=== PATIENT | male | born 1975 | race African-American/Black ===

== ENCOUNTER → 2016-11-25 | Outpatient (CLI) | payer OTHER | LOC: MW.CHUR 10:29 | PROVIDERS: ATTEND Urology | DX: E29.1 Testicular hypofunction (principal) | CPT/HCPCS: 36415; 84402; 84403 ==

== ENCOUNTER 2018-08-20 19:46 | Emergency (ER) | payer SELFPAY ==
[2018-08-20 20:40] VITALS: BP 133/84
[2018-08-20] MEDS ORDERED: Ketorolac 60 MG/2 ML SDV IM ONE (20:47)
--- NOTE | 2018-08-20 20:53 | EDM.PDOC ---
ED HPI GENERAL MEDICAL PROBLEM - General Chief Complaint: Skin Complaint Stated Complaint: POSSIBLE MUNOZ BITE Time Seen by Provider: 08/20/18 20:39 - History of Present Illness INITIAL COMMENTS - FREE TEXT/NARRATIVE: HISTORY AND PHYSICAL: History of present illness: The patient is a 42-year-old male who presents after being exposed to the cold and says this occurred while he was on the job and has pain and tingling to the tips of his fingers throughout as well as to his toes. The patient denies any systemic complaints and has no chest pain or shortness of breath and says his whole body feels cold but he is worried about frostbite on his toes and fingers. Patient has no pre-existing medical problems and was in his usual state of good health when he was out and about today and feels that the exposure happened today. Review of systems: As per history of present illness and below otherwise all systems reviewed and negative. Past medical history: As per history of present illness and as reviewed below otherwise noncontributory. Surgical history: As per history of present illness and as reviewed below otherwise noncontributory. Social history: No reported history of drug or alcohol abuse. Family history: As per history of present illness and as reviewed below otherwise noncontributory. Physical exam: General: Well-developed well-nourished man who is nontoxic and vital signs were noted by me HEENT: Atraumatic, normocephalic, negative for conjunctival pallor or scleral icterus, mucous membranes moist, throat clear, neck supple, nontender, trachea midline. Lungs: Clear to auscultation, breath sounds equal bilaterally, chest nontender. Heart: S1S2, regular rate and rhythm no overt murmurs Abdomen: Soft, nondistended, nontender. NABS Pelvis: Deferred Genitourinary: Deferred. Rectal: Deferred. Extremities: Atraumatic, full range of motion of all extremities. At bilateral feet all the toes are very sensitive to touch but no blisters are noted and there is diffuse ill-defined erythema on all of the toes. The right foot feels warm throughout but the left toes and midfoot are somewhat cold and the patient did wear socks and gym shoes into the ED not any kind of warm boots. No blisters are seen and pulses are intact bilaterally. On bilateral fingers the soft tissue distal phalanx areas of all digits have some pinkish erythema and are sensitive to touch and have some minimal swelling but no blisters are seen in Refill is normal. The remainder of the hand is nontender without erythema tenderness or defects. Neurovascular unremarkable. Neuro: Awake, alert, oriented. Cranial nerves II through XII unremarkable. Cerebellum unremarkable. Motor and sensory unremarkable throughout. Exam nonfocal. Diagnostics: [] Therapeutics: Warm blankets were placed on feet and hands, Toradol I discussed with the patient that at this point the cold exposure would need to declare itself as true frostbite and skin injury and he would need to keep the area is warm and take anti-inflammatories. I will give him Dr. Reyes for follow- up. He is aware that he needs to not pop any blisters that come up and to keep his hands and toes as warm as possible. Impression: Cold exposure to finger s and toes Definitive disposition and diagnosis as appropriate pending reevaluation and review of above. bilateral hands and feet Pain Score (Numeric/FACES): 8 - Related Data Allergies Allergy/AdvReac Type Severity Reaction Status Date / Time No Known Allergies Allergy Verified 08/20/18 20:40 Home Meds: Home Meds . [No Known Home Meds] 08/20/18 [History] Past Medical History - Past Health History Medical/Surgical History: Denies Medical/Surgical History Psychiatric History: Reports: Depression - Infectious Disease History Infectious Disease History: Reports: Chicken Pox Social & Family History - Family History Family Medical History: Noncontributory - Tobacco Use Smoking Status *Q: Current Every Day Smoker Years of Tobacco use: 2 Packs/Tins Daily: 1 - Caffeine Use Caffeine Use: Reports: Coffee - Recreational Drug Use Recreational Drug Use: No ED ROS GENERAL - Review of Systems Review Of Systems: ROS reveals no pertinent complaints other than HPI. ED EXAM, SKIN/RASH Exam: See Below (See dictation) Course - Vital Signs Last Recorded V/S: Last Vital Signs Temp 36.8 C 08/20/18 20:37 Pulse 84 08/20/18 20:37 Resp 17 08/20/18 20:37 BP 133/84 08/20/18 20:37 Pulse Ox 97 08/20/18 20:37 - Orders/Labs/Meds Orders: Active Orders 24 hr Category Date Time Status Ketorolac [Toradol] Med 08/20/18 20:47 Once 60 mg IM ONETIME ONE Departure - Departure Time of Disposition: 20:52 Disposition: Home, Self-Care 01 Condition: Good Clinical Impression: Exposure to environmental cold Qualifiers: Encounter type: initial encounter Qualified Code(s): T69.9XXA - Effect of reduced temperature, unspecified, initial encounter - Discharge Information Referrals: PCP,None [Primary Care Provider] - Additional Instructions: The following information is given to patients seen in the emergency department who are being discharged to home. This information is to outline your options for follow-up care. We provide all patients seen in our emergency department with a follow-up referral. The need for follow-up, as well as the timing and circumstances, are variable depending upon the specifics of your emergency department visit. If you don't have a primary care physician on staff, we will provide you with a referral. We always advise you to contact your personal physician following an emergency department visit to inform them of the circumstance of the visit and for follow-up with them and/or the need for any referrals to a consulting specialist. The emergency department will also refer you to a specialist when appropriate. This referral assures that you have the opportunity for followup care with a specialist. All of these measure are taken in an effort to provide you with optimal care, which includes your followup. Under all circumstances we always encourage you to contact your private physician who remains a resource for coordinating your care. When calling for followup care, please make the office aware that this follow-up is from your recent emergency room visit. If for any reason you are refused follow-up, please contact the [facility] emergency department at and ask to speak to the emergency department charge nurse. [facility] Specialty clinic-Plastic Surgery and Hand Surgery Professional [address] [id number] Please avoid exposure to cold for the next 1-2 days and afterwards please try to protect fingers and toes by wearing warm shoes and gloves. Please take medications as prescribed for the anti-inflammatory properties and for pain management. If any blisters to surface please do not pop them and try to take care to not drain them and return to ER for reevaluation. Please call and schedule a follow-up appointment with our hand surgeon as she will need to follow this long-term for pain management and any skin issues. Return to ER as needed and as discussed. Elevate the areas to avoid swelling. - My Orders Last 24 Hours: My Active Orders 08/20/18 20:47 Ketorolac [Toradol] 60 mg IM ONETIME ONE - Assessment/Plan Last 24 Hours: My Active Orders 08/20/18 20:47 Ketorolac [Toradol] 60 mg IM ONETIME ONE
== END 2018-08-20 21:25 | disposition home or self-care (01) ==
LOC: MW.ED 19:46
DX: T69.9XXA Effect of reduced temperature, unspecified, initial encounter (principal); F17.210 Nicotine dependence, cigarettes, uncomplicated
CPT/HCPCS: 96372; 99283; J1885

== ENCOUNTER 2019-04-24 22:37 | Emergency (ER) | payer SELFPAY ==
--- NOTE | 2019-04-24 22:53 | EDM.PDOC ---
ED HPI GENERAL MEDICAL PROBLEM - General Chief Complaint: General Stated Complaint: NOSE/HIP/HEAD INJURY Time Seen by Provider: 04/24/19 22:46 - History of Present Illness INITIAL COMMENTS - FREE TEXT/NARRATIVE: HISTORY AND PHYSICAL: History of present illness: Patient's 43-year-old black male with no significant past medical history presents status post syncopal episode he states he was watching a football game stood up and passed out he was on the floor he states he had his face and sustained epistaxis he also has left hip pain he denies headache neck pain chest pain palpitations or other concerns. He denies prior episodes Review of systems: As per history of present illness and below otherwise all systems reviewed and negative. Past medical history: As per history of present illness and as reviewed below otherwise noncontributory. Surgical history: As per history of present illness and as reviewed below otherwise noncontributory. Social history: No reported history of drug or alcohol abuse. Family history: As per history of present illness and as reviewed below otherwise noncontributory. Physical exam: HEENT: Atraumatic, normocephalic, pupils reactive, negative for conjunctival pallor or scleral icterus, mucous membranes moist, throat clear, neck supple, nontender, trachea midline. Lungs: Clear to auscultation, breath sounds equal bilaterally, chest nontender. Heart: S1S2, regular, negative for clicks, rubs, or JVD. Abdomen: Soft, nondistended, nontender. Negative for masses or hepatosplenomegaly. Negative for costovertebral tenderness. Pelvis: Stable nontender. Genitourinary: Deferred. Rectal: Deferred. Extremities: Atraumatic, negative for cords or calf pain. Neurovascular unremarkable. Neuro: Awake, alert, oriented. Cranial nerves II through XII unremarkable. Cerebellum unremarkable. Motor and sensory unremarkable throughout. Exam nonfocal. Diagnostics: CBC CMP troponin PT/INR CT brain maxillofacial chest x-ray EKG x-ray left hip/ pelvis UDS Therapeutics: Saline 1 L bolus Impression: #1 observation status post fall #2 syncope #3 epistaxis #4 left hip injury Definitive disposition and diagnosis as appropriate pending reevaluation and review of above. Left Hip Pain Score (Numeric/FACES): 10 - Related Data Allergies Allergy/AdvReac Type Severity Reaction Status Date / Time No Known Allergies Allergy Verified 04/24/19 22:52 Home Meds: Home Meds . [No Known Home Meds] 08/20/18 [History] Past Medical History - Past Health History Medical/Surgical History: Denies Medical/Surgical History Psychiatric History: Reports: Depression - Infectious Disease History Infectious Disease History: Reports: Chicken Pox Social & Family History - Family History Family Medical History: Noncontributory - Caffeine Use Caffeine Use: Reports: Coffee ED ROS GENERAL - Review of Systems Review Of Systems: ROS reveals no pertinent complaints other than HPI. ED EXAM, GENERAL - Physical Exam Exam: See Below (See dictation) Course - Vital Signs Text/Narrative:: Patient's emergency per her course has been unremarkable I discussed with him admission for observation in light of the syncope and unclear etiology patient declined to follow with his primary medical doctor return as needed as discussed Last Recorded V/S: Last Vital Signs Temp 36.5 C 04/24/19 22:47 Pulse 77 04/24/19 22:47 Resp BP 106/64 04/24/19 22:47 Pulse Ox 100 04/24/19 22:47 Orthostatic Blood Pressure [ 117/72 Standing] Orthostatic Blood Pressure [ 99/72 Sitting] Orthostatic Blood Pressure [ 106/64 Supine] - Orders/Labs/Meds Orders: Active Orders 24 hr Category Date Time Status Cardiac Monitoring [RC] . DIRECTED Care 04/24/19 22:49 Active EKG Documentation Completion [RC] STAT Care 04/24/19 22:49 Active Orthostatic Vital Signs [RC] ASDIRECTED Care 04/24/19 22:49 Active Sodium Chloride 0.9% [Normal Saline] 1,000 ml Med 04/24/19 23:00 Active IV .BOLUS Saline Lock Insert [OM.PC] Stat Oth 04/24/19 22:49 Ordered Medication Orders Sodium Chloride (Normal Saline) 1,000 mls @ 999 mls/hr IV .BOLUS MEGAN Last Admin: 04/24/19 23:04 Dose: 999 mls/hr Labs: Laboratory Tests 04/24/19 04/24/19 04/24/19 Range/Units 23:00 23:00 23:00 WBC 3.54 L (4.0-11.0) K/uL RBC 4.35 L (4.50-5.90) M/uL Hgb 14.0 (13.0-17.0) g/dL Hct 42.4 (38.0-50.0) % MCV 97.5 (80.0-98.0) fL MCH 32.2 H (27.0-32.0) pg MCHC 33.0 (31.0-37.0) g/dL RDW Std Deviation 49.2 (28.0-62.0) fl RDW Coeff of Lula 14 (11.0-15.0) % Plt Count 232 (150-400) K/uL MPV 10.20 (7.40-12.00) fL Neut % (Auto) 40.4 L (48.0-80.0) % Lymph % (Auto) 41.8 H (16.0-40.0) % Lewis % (Auto) 11.9 (0.0-15.0) % Eos % (Auto) 5.1 (0.0-7.0) % Baso % (Auto) 0.8 (0.0-1.5) % Neut # (Auto) 1.4 (1.4-5.7) K/uL Lymph # (Auto) 1.5 (0.6-2.4) K/uL Lewis # (Auto) 0.4 (0.0-0.8) K/uL Eos # (Auto) 0.2 (0.0-0.7) K/uL Baso # (Auto) 0.0 (0.0-0.1) K/uL Nucleated RBC % 0.0 /100WBC Nucleated RBCs # 0 K/uL INR 0.98 Sodium 144 (136-148) mmol/L Potassium 3.6 (3.5-5.1) mmol/L Chloride 106 (98-107) mmol/L Carbon Dioxide 27.3 (21.0-32.0) mmol/L BUN 11 (7.0-18.0) mg/dL Creatinine 1.3 (0.8-1.3) mg/dL Est Cr Clr Drug Dosing TNP Estimated GFR (MDRD) > 60.0 ml/min Glucose 106 (74-106) mg/dL Calcium 8.7 (8.5-10.1) mg/dL Total Bilirubin 0.1 L (0.2-1.0) mg/dL AST 18 (15-37) IU/L ALT 20 (14-63) IU/L Alkaline Phosphatase 49 (46-116) U/L Troponin I < 0.050 (0.000-0.056) ng/mL Total Protein 7.6 (6.4-8.2) g/dL Albumin 3.8 (3.4-5.0) g/dL Globulin 3.8 (2.6-4.0) g/dL Albumin/Globulin Ratio 1.0 (0.9-1.6) Urine Color Urine Appearance Urine pH (5.0-8.0) Ur Specific Carey (1.001-1.035) Urine Protein (NEGATIVE) mg/dL Urine Glucose (UA) (NEGATIVE) mg/dL Urine Ketones (NEGATIVE) mg/dL Urine Occult Blood (NEGATIVE) Urine Nitrite (NEGATIVE) Urine Bilirubin (NEGATIVE) Urine Urobilinogen (<2.0) EU/dL Ur Leukocyte Esterase (NEGATIVE) Urine Opiates Screen (NEGATIVE) Ur Oxycodone Screen (NEGATIVE) Urine Methadone Screen (NEGATIVE) Ur Barbiturates Screen (NEGATIVE) Ur Phencyclidine Scrn (NEGATIVE) Ur Amphetamine Screen (NEGATIVE) U Methamphetamines Scrn (NEGATIVE) U Benzodiazepines Scrn (NEGATIVE) U Cocaine Metab Screen (NEGATIVE) U Marijuana (THC) Screen (NEGATIVE) 04/25/19 04/25/19 Range/Units 00:02 00:02 WBC (4.0-11.0) K/uL RBC (4.50-5.90) M/uL Hgb (13.0-17.0) g/dL Hct (38.0-50.0) % MCV (80.0-98.0) fL MCH (27.0-32.0) pg MCHC (31.0-37.0) g/dL RDW Std Deviation (28.0-62.0) fl RDW Coeff of Lula (11.0-15.0) % Plt Count (150-400) K/uL MPV (7.40-12.00) fL Neut % (Auto) (48.0-80.0) % Lymph % (Auto) (16.0-40.0) % Lewis % (Auto) (0.0-15.0) % Eos % (Auto) (0.0-7.0) % Baso % (Auto) (0.0-1.5) % Neut # (Auto) (1.4-5.7) K/uL Lymph # (Auto) (0.6-2.4) K/uL Lewis # (Auto) (0.0-0.8) K/uL Eos # (Auto) (0.0-0.7) K/uL Baso # (Auto) (0.0-0.1) K/uL Nucleated RBC % /100WBC Nucleated RBCs # K/uL INR Sodium (136-148) mmol/L Potassium (3.5-5.1) mmol/L Chloride (98-107) mmol/L Carbon Dioxide (21.0-32.0) mmol/L BUN (7.0-18.0) mg/dL Creatinine (0.8-1.3) mg/dL Est Cr Clr Drug Dosing Estimated GFR (MDRD) ml/min Glucose (74-106) mg/dL Calcium (8.5-10.1) mg/dL Total Bilirubin (0.2-1.0) mg/dL AST (15-37) IU/L ALT (14-63) IU/L Alkaline Phosphatase (46-116) U/L Troponin I (0.000-0.056) ng/mL Total Protein (6.4-8.2) g/dL Albumin (3.4-5.0) g/dL Globulin (2.6-4.0) g/dL Albumin/Globulin Ratio (0.9-1.6) Urine Color YELLOW Urine Appearance CLEAR Urine pH 5.5 (5.0-8.0) Ur Specific Carey >= 1.030 (1.001-1.035) Urine Protein NEGATIVE (NEGATIVE) mg/dL Urine Glucose (UA) NEGATIVE (NEGATIVE) mg/dL Urine Ketones TRACE H (NEGATIVE) mg/dL Urine Occult Blood NEGATIVE (NEGATIVE) Urine Nitrite NEGATIVE (NEGATIVE) Urine Bilirubin NEGATIVE (NEGATIVE) Urine Urobilinogen 0.2 (<2.0) EU/dL Ur Leukocyte Esterase NEGATIVE (NEGATIVE) Urine Opiates Screen NEGATIVE (NEGATIVE) Ur Oxycodone Screen NEGATIVE (NEGATIVE) Urine Methadone Screen NEGATIVE (NEGATIVE) Ur Barbiturates Screen NEGATIVE (NEGATIVE) Ur Phencyclidine Scrn NEGATIVE (NEGATIVE) Ur Amphetamine Screen NEGATIVE (NEGATIVE) U Methamphetamines Scrn NEGATIVE (NEGATIVE) U Benzodiazepines Scrn NEGATIVE (NEGATIVE) U Cocaine Metab Screen NEGATIVE (NEGATIVE) U Marijuana (THC) Screen NEGATIVE (NEGATIVE) Meds: Medications Generic Name Dose Route Start Last Admin Trade Name Freq PRN Reason Stop Dose Admin Sodium Chloride 1,000 mls @ 999 mls/hr 04/24/19 23:00 04/24/19 23:04 Normal Saline IV 999 mls/hr .BOLUS MEGAN Administration Discontinued Medications Generic Name Dose Route Start Last Admin Trade Name Freq PRN Reason Stop Dose Admin Acetaminophen 1,000 mg 04/25/19 00:16 04/25/19 00:24 Tylenol Extra Strength PO 04/25/19 00:17 1,000 mg ONETIME ONE Administration Ketorolac Tromethamine 30 mg 04/25/19 00:16 04/25/19 00:24 Toradol IVPUSH 04/25/19 00:17 30 mg ONETIME ONE Administration Departure - Departure Time of Disposition: 00:52 Disposition: Home, Self-Care 01 Condition: Good Clinical Impression: Syncope, Multiple contusions - Discharge Information Referrals: PCP,None [Primary Care Provider] - Forms: ED Department Discharge Additional Instructions: The following information is given to patients seen in the emergency department who are being discharged to home. This information is to outline your options for follow-up care. We provide all patients seen in our emergency department with a follow-up referral. The need for follow-up, as well as the timing and circumstances, are variable depending upon the specifics of your emergency department visit. If you don't have a primary care physician on staff, we will provide you with a referral. We always advise you to contact your personal physician following an emergency department visit to inform them of the circumstance of the visit and for follow-up with them and/or the need for any referrals to a consulting specialist. The emergency department will also refer you to a specialist when appropriate. This referral assures that you have the opportunity for followup care with a specialist. All of these measure are taken in an effort to provide you with optimal care, which includes your followup. Under all circumstances we always encourage you to contact your private physician who remains a resource for coordinating your care. When calling for followup care, please make the office aware that this follow-up is from your recent emergency room visit. If for any reason you are refused follow-up, please contact the [facility] emergency department at and asked to speak to the emergency department charge nurse. Motrin/Tylenol as directed follow-up primary medical doctor return as needed as discussed - My Orders Last 24 Hours: My Active Orders 04/24/19 22:49 Cardiac Monitoring [RC] . DIRECTED EKG Documentation Completion [RC] STAT Orthostatic Vital Signs [RC] ASDIRECTED Saline Lock Insert [OM.PC] Stat 04/24/19 23:00 Sodium Chloride 0.9% [Normal Saline] 1,000 ml IV .BOLUS - Assessment/Plan Last 24 Hours: My Active Orders 04/24/19 22:49 Cardiac Monitoring [RC] . DIRECTED EKG Documentation Completion [RC] STAT Orthostatic Vital Signs [RC] ASDIRECTED Saline Lock Insert [OM.PC] Stat 04/24/19 23:00 Sodium Chloride 0.9% [Normal Saline] 1,000 ml IV .BOLUS
[2019-04-24] MEDS ORDERED: Sodium Chloride 0.9% 1,000 ML IV SCH (23:00)
--- NOTE | 2019-04-24 23:39 | CT ---
INDICATION: Syncope TECHNIQUE: CT head without contrast. COMPARISON: None FINDINGS: CSF spaces: Within normal limits for age. Brain parenchyma: The harper-white differentiation is normal. No sign of mass, hemorrhage, or midline shift. Bilateral basal ganglia calcifications. Skull base and calvarium: The visualized paranasal sinuses and mastoid air cells demonstrate no acute or significant findings. The visualized orbits are grossly unremarkable. No skull fractures. IMPRESSION: Unremarkable noncontrast head CT. Dictated by Mark Gould MD @ 04/24/2019 11:37:20 PM Please note that all CT scans at this facility use dose modulation, iterative reconstruction, and/or weight-based dosing when appropriate to reduce radiation dose to as low as reasonably achievable. Dictated by: Mark Gould MD @ 04/24/2019 23:37:30 (Electronically Signed)
--- NOTE | 2019-04-24 23:41 | CT ---
INDICATION: Syncope TECHNIQUE: CT maxillofacial without contrast. COMPARISON: None FINDINGS: Facial bones: No fractures or bone lesions. Specifically the nasal bones, temporomandibular joints, maxilla and mandible appear intact. Orbits and globes: Unremarkable. Sinuses: Left maxillary sinus minimal mucosal thickening Soft tissues: Unremarkable. IMPRESSION: No sign of acute injury. Dictated by Mark Gould MD @ 04/24/2019 11:38:57 PM Please note that all CT scans at this facility use dose modulation, iterative reconstruction, and/or weight-based dosing when appropriate to reduce radiation dose to as low as reasonably achievable. Dictated by: Mark Gould MD @ 04/24/2019 23:39:02 (Electronically Signed)
[2019-04-24 23:42] LABS: BLOOD UREA NITROGEN,BUN 11 mg/dL (7.0-18.0); CARBON DIOXIDE,CO2 27.3 mmol/L (21.0-32.0); CHLORIDE,CL 106 mmol/L (98-107); GLUCOSE RANDOM 106 mg/dL (74-106); POTASSIUM,K 3.6 mmol/L (3.5-5.1); SODIUM,NA 144 mmol/L (136-148)
--- NOTE | 2019-04-24 23:45 | CR ---
INDICATION: Syncope spell TECHNIQUE: Chest 1 view. COMPARISON: None. FINDINGS: Cardiovascular and mediastinum: Heart size and vasculature are normal in caliber and appearance. Mediastinum is within normal limits. Lungs and pleural space: The left costophrenic angle is not included on the image. Lungs are clear. No sign of infiltrate or mass. No sign of pleural effusion. No pneumothorax. Bones and soft tissues: No significant findings. IMPRESSION: Unremarkable chest. Dictated by: Mark Gould MD @ 04/24/2019 23:44:23 (Electronically Signed)
[2019-04-25] MEDS ORDERED: Ketorolac 30 MG/ML SDV IVPUSH ONE (00:16)
[2019-04-25] MEDS ORDERED: Acetaminophen 500 MG Tab PO ONE (00:16)
--- NOTE | 2019-04-25 00:39 | CR ---
Indication: Fall, pain Technique: Frontal view pelvis, two view left hip Comparison: None Findings: Bones: Alignment is normal. No fractures or bone lesions. Joint spaces: Degenerative osteophytes on the superior aspect of the acetabulum. Soft tissues: Unremarkable. Impression: No acute fracture subluxation. Degenerative osteophytes on the superior aspect of the acetabulum. Dictated by Abida Blank MD @ Apr 25 2019 12:38AM Signed by Dr. Abida Blank @ Apr 25 2019 12:38AM
[2019-04-25 01:06] VITALS: BP 120/68; PULSE 73
== END 2019-04-25 01:03 | disposition home or self-care (01) ==
LOC: MW.ED 22:37
DX: S79.912A Unspecified injury of left hip, initial encounter (principal); T14.8XXA Other injury of unspecified body region, initial encounter; R55 Syncope and collapse; R04.0 Epistaxis; W19.XXXA Unspecified fall, initial encounter; Y93.89 Activity, other specified
CPT/HCPCS: 36415; 70450; 70486; 71045; 73502; 80053; 80305; 81003; 84484; 85025; 85610; 93005; 96361; 96374; 99285; A9270; J1885; J7040